=== PATIENT | female | born 1985 | race Hispanic/Latino ===

== ENCOUNTER → 2023-09-15 | Outpatient (REF) | payer OTHER ==
[~2023-09-15] MED LIST: METFORMIN HCL500 MG PO; PANTOPRAZOLE SO40 MG PO
== END ==
LOC: US 09:20
PROVIDERS: ATTEND Nurse Practitioner
DX: R10.10 Upper abdominal pain, unspecified (principal); R10.30 Lower abdominal pain, unspecified; K21.9 Gastro-esophageal reflux disease without esophagitis
CPT/HCPCS: 76700; 76856

== ENCOUNTER → 2023-09-21 | Day surgery (SDC) | payer OTHER ==
[~2023-09-21] MED LIST changes: +FENTANYL CITRATE/PF 100MCG/2 ML INJ ONE; +LACTATED RINGER'S 1,000 ML ONE; +METOCLOPRAMIDE HCL 10 MG/2ML VIAL ONE; +PROPOFOL IV EMULSION 10 MG/ML 20 ML VIAL ONE
[2023-09-21 11:36] VITALS: TEMP 97.9
[2023-09-21 11:51] VITALS: BP 109/73; PULSE 87; RESP 16; O2SAT 98
== END | disposition home or self-care (01) ==
LOC: OR 09:19
PROVIDERS: ATTEND Internal Medicine Gastroenterology
DX: K21.9 Gastro-esophageal reflux disease without esophagitis (principal); K29.70 Gastritis, unspecified, without bleeding; K20.90 Esophagitis, unspecified without bleeding; R19.5 Other fecal abnormalities; Z71.3 Dietary counseling and surveillance; E11.9 Type 2 diabetes mellitus without complications; Z71.89 Other specified counseling; Z01.810 Encounter for preprocedural cardiovascular examination; Z79.84 Long term (current) use of oral hypoglycemic drugs; Z68.28 Body mass index [BMI] 28.0-28.9, adult
CPT/HCPCS: 43239; 81025; 93005; J2470; J2704; J2765; J3010; J7121